=== PATIENT | female | born 2000 | race Caucasian/White ===

== ENCOUNTER 2022-11-05 18:39 | Emergency (ER) | payer BC ==
--- OUTSIDE RECORDS SUMMARY | 2022-11-05 19:02 | XMS REPORT | Continuity of Care Document ---
:2000 Author Organization [facility] t Address [address] [place] [address] Care Team Providers Name Role Phone AUDI ZAMUDIO Attending Clinician Unavailable SOPHIA BLOOM Attending Clinician Unavailable GC_NEOGA_Stephens_T Attending Clinician Unavailable NAMRATA AMBROSIO Attending Clinician Unavailable Aydin Kwok Attending Clinician Unavailable Watdeloris_H Attending Clinician Unavailable MINE MATTSON Attending Clinician Unavailable MD NANCY Attending Clinician Unavailable [facility] Attending Clinician Unavailable Namrata Ambrosio MD Attending Clinician [phone] Attending Clinician Unavailable Eliezer Rasheed Attending Clinician Unavailable AGUSTIN KIM Attending Clinician Unavailable SANDRA HU Attending Clinician Unavailable Agustin Kim MD Attending Clinician GC_NEOGA_Stephens_T Admitting Clinician Unavailable Physician, No Primary or Family Admitting Clinician Unavaila ble Watkins_H Admitting Clinician Unavailable Payers Payer Name Policy Type Policy Number Effective Date Expiration Date S [facility] [id number] 2019 00:00:00 [place] [id number] 2019 (PPO) 00:00:[address] [facility] [id number] [facility] 2 [id number] 2021 00:00:00 Problems This patient has no known problems. Allergies, Adverse Reactions, Alerts Allergy Allergy Status Severity Reaction(s) Onset Inactive Treating Comm ents Source Name Type Date Date Clinician Penicill DA Active U HIVES 2021-0 [facility] e [facility] propofol DA Active U UNKNOWN 2021-0 [facility] 7-16 [facility] 00:00: e 00 [facility] amoxicil DA Active SV HIVES 0 [facility] adri 7-16 [facility] 00:00: e 00 [facility] mushroom FA Active U UNKNOWN [facility] 7[facility]16 [facility] 00:00: e 00 [facility] Center Penicill DA Active U HIVES 2021-0 [facility] ins 3-11 [facility] 00:00: e 00 [facility] propofol DA Active U UNKNOWN 2021-0 [facility] 3-11 [facility] 00:00: e 00 [facility] mushroom FA Active U UNKNOWN 2021-0 [facility] 3-11 [facility] 00:00: e 00 [facility] Propofol Propensi Active Nausea and 2019- Patient Nat san ty to Vomiting 2-30 not sure Seybol d adverse 00:00: - reaction 00 Externa s l Propofol Propensi Active Nausea and 2019- Patient Nat san ty to Vomiting 2-30 not sure Seybol d adverse 00:00: reaction 00 s Mushroom Propensi Active Anaphylaxis 2015- K elsey Extract ty to 02-10 Seybold Complex adverse 00:00: reaction 00 s Mushroom Propensi Active Anaphylaxis 2015-0 K elsey Extract ty to 9 Seybold Complex adverse 00:00: - reaction 00 Externa s l Penicill Propensi Active Rash 2013- Mom Rocio ins ty to 5-06 states pt Seybold adverse 00:00: is reaction 00 allergic s to all "cillins" Penicill Propensi Active Rash 2013-0 Mom Rocio ins ty to 5-06 states pt Seybold adverse 00:00: is - reaction 00 allergic Supervisor Beater Room a s to all l "cillins" Social History Social Habit Start Date Stop Date Quantity Comments Source Exposure to Not sure Rocio Seybol d SARS-CoV-2 (event) Tobacco Comment 2021-08-12 2021-08-12 vapes daily Rocio dumontld - 00:00:00 00:00:00 External Sex Ass[birth year] At [birth year] Rocio jacobs - 00:00:00 00:00:00 External Smoking Status Start Date Stop Date Source Tobacco smoking consumption Althea ey Seybold unknown Never Smoker [facility] Smokes tobacco daily 2021-08-12 00:00:00 Rocio Nelson - External Medications Ordered Filled Start Stop Current Ordering Indication Dosage Frequency Signature Comments Components Source Medication Medication Date Date Medication? Clinician (SIG) Name Name Doxycycline Yes 100mg Take 100 K elsey Hyclate 100 9-28 mg by Seybold MG oral 00:00: mouth - Capsule 00 daily Externa l Azithromyci Yes TAKE 2 Althea ey n 250 MG 9-27 TABLETS BY Seybo ld oral Tablet 00:00: MOUTH - 00 TODAY, Externa THEN TAKE l 1 TABLET DAILY FOR 4 DAYS Clindamycin Yes TAKE 1 Althea ey HCl 300 MG 9-27 CAPSULE 4 Seyb old oral 00:00: TIMES A - Capsule 00 DAY UNTIL Externa FINISHED l TRIMETHOPRI Yes [id number] Take one Rocio M-SULFAMETH 2-02 tablet Seybol d OXAZOLE 00:00: twice (Bactrim 00 daily DS) 800-160 MG oral Tablet Ivermectin Yes [id number] Apply pea Rocio 1 % apply - sized Seybold externally 00:00: amount Cream 00 daily to facial areas TRIMETHOPRI Yes [id number] Take one Rocio M-SULFAMETH 2-02 tablet Seybol d OXAZOLE 00:00: twice (Bactrim 00 daily DS) 800-160 MG oral Tablet TRIMETHOPRI Yes [id number] Take one Rocio M-SULFAMETH 2-02 tablet Seybol d OXAZOLE 00:00: twice - (Bactrim 00 daily Externa DS) 800-160 l MG oral Tablet Ivermectin 2021- No [id number] Apply pea Rocio 1 % apply 2-02 03-21 sized Seybold externally 00:00: 00:00 amount Cream 00 :00 daily to facial areas Lisdexamfet Yes 40mg Take 40 mg Rocio amine - by mouth Seybold Dimesylate 00:00: every 40 MG oral 00 morning Capsule Lisdexamfet Yes 40mg Take 40 mg Rocio amine - by mouth Seybold Dimesylate 00:00: every - 40 MG oral 00 morning Supervisor [facility] Room a Capsule l Lisdexamfet 2021- No 40mg Take 40 mg Rocio amine -07-20 by mouth Seybold Dimesylate 00:00: 05:59 every 40 MG oral 00 :00 morning Capsule EPINEPHrine 2020-05 Yes .3mg Inject 0.3 Rocio 0.3 MG/0.3 0-12 mg into Seybol d ML IJ SOAJ 00:00: the muscle 00 as needed EPINEPHrine 2020-05 Yes .3mg Inject 0.3 Rocio 0.3 MG/0.3 0-12 mg into Seybol d ML IJ SOAJ 00:00: the muscle 00 as needed EPINEPHrine 2020-05 Yes .3mg Inject 0.3 Rocio 0.3 MG/0.3 0-12 mg into Seybol d ML IJ SOAJ 00:00: the muscle - 00 as needed Externa l azithromyci azithromyci No azithromyc [facility] n 250 mg n 250 mg in 250 mg Me dical tablet TAKE tablet TAKE tablet 2 TABLETS 2 TABLETS TAKE 2 BY MOUTH BY MOUTH TABLETS BY TODAY, THEN TODAY, THEN MOUTH TAKE 1 TAKE 1 TODAY, TABLET TABLET THEN TAKE DAILY FOR 4 DAILY FOR 4 1 TABLET DAYS DAYS DAILY FOR 4 DAYS clindamycin clindamycin No clindamyci [facility] HCl 300 mg HCl 300 mg n HCl 300 Medical capsule capsule mg capsule TAKE 1 TAKE 1 TAKE 1 CAPSULE 4 CAPSULE 4 CAPSULE 4 TIMES A DAY TIMES A DAY TIMES A UNTIL UNTIL DAY UNTIL FINISHED FINISHED FINISHED docusate docusate No docusate Malina via sodium 100 sodium 100 sodium 100 Medical mg capsule mg capsule mg capsule TAKE 1 TAKE 1 TAKE 1 CAPSULE BY CAPSULE BY CAPSULE BY MOUTH TWICE MOUTH TWICE MOUTH A DAY A DAY TWICE A DAY doxycycline doxycycline No doxycyclin [facility] hyclate 100 hyclate 100 e hyclate Medical mg capsule mg capsule 100 mg TAKE 1 TAKE 1 capsule CAPSULE BY CAPSULE BY TAKE 1 MOUTH EVERY MOUTH EVERY CAPSULE BY DAY DAY MOUTH EVERY DAY epinephrine epinephrine No epinephrin [facility] 0.3 mg/0.3 0.3 mg/0.3 e 0.3 Me dical mL mL mg/0.3 mL injection, injection, injection, auto-inject auto-inject auto-injec or INJECT or INJECT tor INJECT 0.3 MG INTO 0.3 MG INTO 0.3 MG THE MUSCLE THE MUSCLE INTO THE ONCE ONCE MUSCLE NEEDED, MAY NEEDED, MAY ONCE REPEAT 1 REPEAT 1 NEEDED, EXTRA DOSE EXTRA DOSE MAY REPEAT FOR UP TO 2 FOR UP TO 2 1 EXTRA DOSES. DOSES. DOSE FOR UP TO 2 DOSES. hydrocodone hydrocodone No hydrocodon [facility] 10 10 e 10 Medical mg-acetamin mg-acetamin mg-acetami ophen 325 ophen 325 nophen 325 mg tablet mg tablet mg tablet TAKE 1 TO 2 TAKE 1 TO 2 TAKE 1 TO TABLETS BY TABLETS BY 2 TABLETS MOUTH EVERY MOUTH EVERY BY MOUTH 6 HOURS 6 HOURS EVERY 6 NEEDED NEEDED HOURS NEEDED hydrocodone hydrocodone No hydrocodon [facility] 5 5 e 5 Medical mg-acetamin mg-acetamin mg-acetami ophen 325 ophen 325 nophen 325 mg tablet mg tablet mg tablet TAKE 1 TAKE 1 TAKE 1 TABLET TABLET TABLET EVERY 6 EVERY 6 EVERY 6 HOURS HOURS HOURS NEEDED FOR NEEDED FOR NEEDED FOR PAIN PAIN PAIN hydrocodone hydrocodone No hydrocodon [facility] 7.5 7.5 e 7.5 Medical mg-acetamin mg-acetamin mg-acetami ophen 325 ophen 325 nophen 325 mg tablet mg tablet mg tablet TAKE 1 TAKE 1 TAKE 1 TABLET BY TABLET BY TABLET BY MOUTH EVERY MOUTH EVERY MOUTH 6 HOURS 6 HOURS EVERY 6 NEEDED FOR NEEDED FOR HOURS PAIN PAIN NEEDED FOR PAIN hydrocortis hydrocortis No hydrocorti [facility] one acetate one acetate sone M edical 30 mg 30 mg acetate 30 rectal rectal mg rectal suppository suppository suppositor UNWRAP AND UNWRAP AND y UNWRAP INSERT 1 INSERT 1 AND INSERT SUPPOSITORY SUPPOSITORY 1 RECTALLY RECTALLY SUPPOSITOR TWICE A DAY TWICE A DAY Y RECTALLY DIRECTED DIRECTED TWICE A DAY DIRECTED ketorolac ketorolac No ketorolac [facility] 10 mg 10 mg 10 mg Medical tablet TAKE tablet TAKE tablet 1 TABLET BY 1 TABLET BY TAKE 1 MOUTH EVERY MOUTH EVERY TABLET BY 6 HOURS 6 HOURS MOUTH NEEDED FOR NEEDED FOR EVERY 6 PAIN PAIN HOURS NEEDED FOR PAIN valacyclovi valacyclovi No valacyclov [facility] r 1 gram r 1 gram ir 1 gram Me dical tablet TAKE tablet TAKE tablet 1 TABLET 1 TABLET TAKE 1 (1,000 MG (1,000 MG TABLET TOTAL) BY TOTAL) BY (1,000 MG MOUTH 2 MOUTH 2 TOTAL) BY (TWO) TIMES (TWO) TIMES MOUTH 2 A DAY FOR 8 A DAY FOR 8 (TWO) DAYS. DAYS. TIMES A DAY FOR 8 DAYS. Vyvanse 40 Vyvanse 40 No Vyvanse 40 [facility] mg capsule mg capsule mg capsule Medical TAKE 1 TAKE 1 TAKE 1 CAPSULE (40 CAPSULE (40 CAPSULE MG TOTAL) MG TOTAL) (40 MG BY MOUTH BY MOUTH TOTAL) BY EVERY EVERY MOUTH MORNING. MORNING. EVERY MORNING. Vital Signs Vital Name Observation Time Observation Value Comments Source BP Diastolic 2022-06-30 00:00:00 82 mm[Hg] Sherlyn Silva ical Height 2022-06-30 00:00:00 70 [in_i] Sherlyn Silva [facility] BMI (Body Mass Index) 2022-06-30 00:00:00 38.7 kg/m2 [facility] Medical BP Systolic 2022-06-30 00:00:00 120 mm[Hg] Sherlyn Silva [facility] Body Weight 2022-06-30 00:00:00 270 [lb_av] Sherlyn Silva ical Systolic blood 2022-02-24 14:15:00 112 mm[Hg] Rocio Santamariaybold - pressure External Diastolic blood 2022-02-24 14:15:00 74 mm[Hg] Santiago watkins Seybold - pressure External Heart rate 2022-02-24 14:15:00 82 /min Rocio hectorbold - External Respiratory rate 2022-02-24 14:15:00 15 /min Althea hector Seybold - External Body weight 2022-02-24 14:15:00 112.492 kg Rocio S krunalbold - External BMI 2022-02-24 14:15:00 36.62 kg/m2 Rocio hectorbold - External Systolic blood 2021-08-12 13:50:00 129 mm[Hg] Rocio Santamariaybold pressure Diastolic blood 2021-08-12 13:50:00 80 mm[Hg] Santiago watkins Seybold pressure Heart rate 2021-08-12 13:50:00 76 /min Rocio narayanan Respiratory rate 2021-08-12 13:50:00 16 /min Althea Nelson Body height 2021-08-12 13:50:00 175.3 cm Rocio narayanan Body weight 2021-08-12 13:50:00 102.422 kg Rocio narayanan BMI 2021-08-12 13:50:00 33.34 kg/m2 Rocio narayanan Procedures Procedure Date / Time Performed Performing Clinician [facility] Procedure on Wrist 2021-05-25 00:00:00 [facility] Breast Reduction 2017-05-25 00:00:00 [facility] Tonsilectomy/adenoids [facility] Plan of Care Planned Activity Planned Date Details Comments Source Diagnostic Test Pending 2022-06-30 00:00:00 OCRL1 mutations, [facility] blood or tissue [code = OCRL1 mutations, blood or tissue] Diagnostic Test Pending 2022-06-30 00:00:00 ca 125, serum [code [facility] = ca 125, serum] Encounters Start End Encounter Admission Attending Care Care Encounter Source Date/Time Date/Time Type Type Clinicians Facility Department ID 2021-09-11 Outpatient [facility] [id number] [place] 08:15:37 [id number] [facility] 2021-08-29 Outpatient ROBB [facility] [id number] [place] 15:58:21 AUDI [id number] [facility] 2022-07-18 2022-07-18 [place] [id number] AD[place] 01:41:00 05:43:00 LIPING 2022-06-30 2022-06-30 Outpatient [facility] [id number] [facility] 00:00:00 00:00:00 ephens_T [id number] Medic al 2022-06-30 2022-06-30 Outpatient [facility] [id number] [facility] 00:00:00 00:00:00 ephens_T [id number] Medic al 2022-06-30 2022-06-30 [facility] 00:00:00 00:00:00 [facility] [place]: [id number] GC_NEOGA_Ki Lengby radha Del Valle, [facility] Office* [address], [place] [address] , Ph. 2022-06-25 2022-06-25 Outpatient [facility] [id number] [facility] 00:00:00 00:00:00 ephens_T [id number] Medic al 2022-06-18 2022-06-18 Outpatient [facility] [id number] [facility] 00:00:00 00:00:00 ephens_T [id number] Medic al 2022-06-18 2022-06-18 Outpatient [facility] [id number] [facility] 00:00:00 00:00:00 ephens_T [id number] Medic al 2022-02-24 2022-02-24 Outpatient ROCIO AMBROSIO [id number] [facility] 08:30:00 08:30:00 NAMRATA renteria 2022-02-20 2022-02-20 Outpatient ROCIO AMBROSIO [id number] [facility] 00:00:00 00:00:00 NAMRATA renteria 2021-12-07 2021-12-07 Emergency SONDRA Petit [facility] [id number] [facility] 15:52:00 19:41:00 Aydin 18 [facility] 2021-12-07 2021-12-07 Emergency SONDRA Petit [facility] [id number] [facility] 15:52:00 19:41:00 Aydin [id number] [facility] 2021-11-14 2021-11-14 [place] [id number] - [place] 10:25:00 10:25:00 [id number] 2021-11-11 2021-11-11 Outpatient ROCIO AMBROSIO [id number] Rocio 00:00:00 00:00:00 NAMRATA renteria 2021-08-29 2021-08-29 Emergency E LAKEISHA MATTSON MHSE [id number] 12:07:00 14:44:00 MINE garcia [facility] 2021-08-26 2021-08-26 Outpatient MALKAVIOLETAIVELISSE ROCIO KEYES [id number] Rocio 00:00:00 00:00:00 MD MAYITO Seybol d 2021-08-25 2021-08-25 Outpatient ROCIO AMBROSIO [id number] [facility] 00:00:00 00:00:00 NAMRATA Seybol d 2021-08-21 2021-08-21 Outpatient ROCIO KEYES [id number] [facility] 10:30:00 10:30:00 Seybol d 2021-08-16 2021-08-16 Outpatient ROCIO AMBROSIO [id number] [facility] 00:00:00 00:00:00 NAMRATA Seybol d 2021-08-14 2021-08-14 Outpatient ROCIO KEYES [id number] Roc[facility] 10:15:00 10:15:00 Seybol d 2021-08-14 2021-08-14 Outpatient ROCIO AMBROSIO [id number] [facility] 00:00:00 00:00:00 NAMRATA Seybol d 2021-08-12 2021-08-12 Outpatient WCLAB ROCIO KEYES [id number] Rocio 09:45:00 09:45:00 Seybol d 2021-08-12 2021-08-12 Office JULIA Ambrosio'S [id number] Rocio 08:45:00 09:00:00 Visit Namrata MONTIEL [id number] arlene Wharton [id number] 2021-08-12 2021-08-12 Outpatient JAY96-MSW ROCIO KEYES [id number] Rocio 08:45:00 08:45:00 Seybol d 2021-08-02 2021-08-02 Inpatient SONDRA Ayers [id number] [facility] 00:11:00 02:50:00 Eliezer Kelley [facility] 2021-08-01 2021-08-01 Outpatient ROCIO KIM [id number] Rocio 08:30:00 08:30:00 AGUSTIN Seybo ld 2021-07-31 2021-07-31 Outpatient ROCIO KIM [id number] Rocio 11:30:00 11:30:00 AGUSTIN resendiz 2021-07-18 2021-07-18 Emergency E FRITZ, MHSE MHSE [id number] MH 18:11:00 20:01:00 SANDRA Fely garcia [facility] 2021-06-26 2021-06-26 Office Chikis [facility] [id number] Rocio 08:30:00 08:45:00 Visit Agustin AT THE [id number] [facility] [employer] AT [id number] [place] [id number] [place] [id number] Results Test Description Test Time Test Comments Results Result Comments Source BASIC METABOLIC PANEL 2021-12-07 18:23:00 Test Item Value Reference Range Interpretation Comme nts SODIUM (test code = NA) 138 mmol/L 136-145 N POTASSIUM (test code = K) 4.0 mmol/L 3.5-5.1 N CHLORIDE (test code = CL) 105.0 mmol/L 98-107 N CARBON DIOXIDE (test code = 26.0 mmol/L 21-32 N CO2) ANION GAP (test code = GAP) 11.0 10-20 N GLUCOSE (test code = GLU) 79 mg/dL 74-106 N BLOOD UREA NITROGEN (test 8 mg/dL 7-18 N code = BUN) GLOMERULAR FILTRATION RATE > 60 mL/min See_Comment E stimated GFR by using (test code = GFR) Modified M DRD formula.Chronic kidney disease is defined as either kidney d amageor GFR <60 mL/min/1.73 m2 for >3 months. [Automa nikko message] The system [employer] generated this result tra nsmitted reference range : >=60. The reference range was not used to interpret th is result as normal/abnormal . CREATININE (test code = 0.60 mg/dL 0.55-1.02 N No te change in reference CREAT) range due to ch giles in reagent. BUN/CREATININE RATIO (test 12.7 10-20 N code = BUN/CREA) CALCIUM (test code = CA) 9.6 mg/dL 8.5-10.1 N HCG SERUM [id number] 18:23:00 Test Item Value Reference Range Interpretation Comments HCG SERUM QUAL (test NEGATIVE NEGATIVE This HC GQL test is NOT code = HCGQL) applicable for MALE patients.Check with nurse about probable order error.If Tumor Marker Test needed, nu rse should order test "HCG TU"(Test #550.51290)---- - CBC W/O [id number] 18:01:00 Test Item Value Reference Range Interpretation Comments WHITE BLOOD CELL (test code = 7.3 K/mm3 4.5-12.5 N WBC) RED BLOOD CELL (test code = 5.56 mill/mm3 3.7-5.2 H RBC) HEMOGLOBIN (test code = HGB) 14.9 gram/dL 11.5-15.5 N HEMATOCRIT (test code = HCT) 47.3 % 36.0-46.0 H MEAN CELL VOLUME (test code = 85.1 fL 80-98 N MCV) MEAN CELL HGB (test code = MCH) 26.8 picogram 27.0-33.0 L MEAN CELL HGB CONCETRATION 31.5 gram/dL 33.0-36.0 L (test code = MCHC) RED CELL DISTRIBUTION WIDTH 14.0 % 11.6-16.2 N (test code = RDW) PLATELET COUNT (test code = 284 K/mm3 150-450 N PLT) MEAN PLATELET VOLUME (test code 9.9 fL 6.7-11.0 N = MPV) URINALYSIS [id number] 16:47:00 Test Item Value Reference Range Interpretation Comments UA COLOR (test code = Light-Yellow YELLOW COLU) UA APPEARANCE (test CLEAR CLEAR IS THE S AMPLE code = APPU) FROM ER OR L&D? IF THE ANSWER I S NO,PLEASE DOCUMENT TWO RN SIGNATURES HERE - by V.LAB.LT 12/07/21 1640 UA GLUCOSE DIPSTICK NEGATIVE mg/dL NEGATIVE (test code = DGLUU) UA BILIRUBIN DIPSTICK NEGATIVE mg/dL NEGATIVE (test code = BILU) UA KETONE DIPSTICK NEGATIVE mg/dL NEGATIVE (test code = KETU) UA SPECIFIC GRAVITY 1.024 1.001-1.035 (test code = SGU) UA BLOOD DIPSTICK 1.0 mg/dL (3+) NEGATIVE A (test code = LES) mg/dL UA PH DIPSTICK (test 7.5 5.0-8.0 code = SHELTON) UA PROTEIN DIPSTICK 10 (Trace) mg/dL NEGATIVE A (test code = PROU) UA UROBILINIOGEN Normal mg/dL NEGATIVE DIPSTICK (test code = URO) UA NITRITE DIPSTICK NEGATIVE NEGATIVE (test code = SESAR) UA LEUKOCYTE ESTERASE NEGATIVE Liam/uL NEGATIVE W REFLEX (test code = LEUUR) UA WBC (test code = 0-5 per HPF 0-5 WBCU) UA RBC (test code = 0-2 #/HPF 0-5 RBCU) UA EPITHELIAL CELLS FEW per HPF FEW (test code = EPIU) UA BACTERIA (test NONE SEEN #/HPF NONE code = BACU) UA MUCUS (test code = FEW #/LPF FEW MUCU) Urine Source? Clean CatchURINALYSIS [id number] 02:38:00 Test Item Value Reference Range Interpretation Comments UA COLOR (test code = YELLOW YELLOW COLU) UA APPEARANCE (test CLEAR CLEAR IS THE S AMPLE code = APPU) FROM ER OR L&D? Y IF THE ANSWER I S NO,PLEASE DOCUMENT TWO RN SIGNATURES HERE - by [id number] 08/02/21 0238 UA GLUCOSE DIPSTICK NEGATIVE mg/dL NEGATIVE (test code = DGLUU) UA BILIRUBIN DIPSTICK NEGATIVE mg/dL NEGATIVE (test code = BILU) UA KETONE DIPSTICK NEGATIVE mg/dL NEGATIVE (test code = KETU) UA SPECIFIC GRAVITY 1.023 1.001-1.035 (test code = SGU) UA BLOOD DIPSTICK 0.1 mg/dL (1+) NEGATIVE A (test code = LES) mg/dL UA PH DIPSTICK (test 6.5 5.0-8.0 code = SHELTON) UA PROTEIN DIPSTICK 10 (Trace) mg/dL NEGATIVE A (test code = PROU) UA UROBILINIOGEN Normal mg/dL NEGATIVE DIPSTICK (test code = URO) UA NITRITE DIPSTICK NEGATIVE NEGATIVE (test code = SESAR) UA LEUKOCYTE ESTERASE NEGATIVE Liam/uL NEGATIVE W REFLEX (test code = LEUUR) UA WBC (test code = 6-10 per HPF 0-5 A WBCU) UA RBC (test code = 3-5 #/HPF 0-5 RBCU) UA EPITHELIAL CELLS FEW per HPF FEW (test code = EPIU) UA BACTERIA (test FEW #/HPF NONE A code = BACU) UA MUCUS (test code = MODERATE #/LPF FEW A MUCU) Urine Source? Clean Catch- CT ABD PELVIS [id number] 02:03:00 [facility] ([facility])Name: AARON PATINO : 2000 Sex: F Name: AARON PATINO [facility] : 2000 Age/S: 20 / F [address] [facility] Unit #: [id number] Loc: Lani ALEXANDR [address] Phys: Esther Pérez [employer] Acct: [id number] Dis Date: Status: REG ER PHONE #: [phone] Exam Date: 08/02/2021 0150 FAX #: [phone] Reason: rectal pain EXAMS: CPTCODE: [id number] CT ABD PELVIS W/CONT [id number] Dictation location: H37. CT ABDOMEN AND PELVIS WITH IV CONTRAST HISTORY: rectal pain COMPARISON: None. TECHNIQUE: Postcontrast axial CT images of the abdomenand pelvis were obtained with coronal and/or sagittal reformatted views. Automated exposure control,iterative reconstruction technique, and/or adjustment of mA and/or kV according to patient's size was utilized for radiation dose reduction. FINDINGS: Visualized lung bases are clear. The heart size isnormal. No pericardial effusion. The gallbladder is partially distended without surrounding inflammatory changes. The liver, spleen, pancreas and adrenal glands are unremarkable. Both kidneys are similar in size, shape and enhancement and excretion of contrast material without evidence of hydronephrosis. Urinary bladder is contracted. An IUD is noted within the uterus. The ovaries are grossly unremarkable. No free air, free fluid or evidence of a bowel obstruction. Normal appendix. No definite bowel wall thickening. No definite abnormality seen along the rectum. The aorta is normal in caliber. No abdominal or pelvic adenopathy. The bones are unremarkable. IMPRESSION: Normal appendix. No inflammatory changes in the abdomen or pelvis. IUD. PAGE 1 Signed Report (CONTINUED) Name: AARON PATINO [facility] : 2000 Age/S: 20 / F [address] [facility] Unit #: [id number] Loc: Lani ALEXANDR [address]Vnec: Estehr Pérez NP Acct: [id number] Dis Date: Status: REG ER PHONE #: [phone] Exam Date: 08/02/2021 0150 FAX #: [phone] Reason: rectal pain EXAMS: CPT CODE: [id number] CT ABD PELVIS W /CONT [id number] (Continued) at 0203 Reported and signed by: Pool Presley M.D. CC: Esther Pérez NP Technologist:Es Murillo RT(R),CT CTDI: DLP: Trnscb Date/Time: 08/02/2021 (020) [email or web address] Orig Print D/T: S: 08/02/2021 (0206) PAGE 2 Signed ReportHEPATIC FUNCTION [id number] 01:33:00 Test Item Value Reference Range Interpretation Comments TOTAL PROTEIN (test 6.8 gram/dL 6.4-8.2 N code = PROT) ALBUMIN (test code = 3.8 g/dL 3.4-5.0 N ALB) GLOBULIN (test code = 3.0 gram/dL 2.7-4.2 N GLOB) ALBUMIN/GLOBULIN RATIO 1.3 0.75-1.50 N (test code = A/G) BILIRUBIN TOTAL (test 0.50 mg/dL 0.0-1.0 N code = BILT) BILIRUBIN DIRECT (test 0.20 mg/dL 0.0-0.20 N code = BILD) SGOT/AST (test code = 11 IUnit/L 15-37 L AST) SGPT/ALT (test code = 12 IUnit/L 12-78 N ALT) ALKALINE PHOSPHATASE 83 IUnit/L 45-117 N Note change in TOTAL (test code = reference range due ALKP) to change in reagent. [id number] 01:33:00 Test Item Value Reference Range Interpretation Comments LIPASE (test code = LIP) 24 U/L 12.00-57.00 N HCG SERUM [id number] 01:33:00 Test Item Value Reference Range Interpretation Comments HCG SERUM QUAL (test NEGATIVE NEGATIVE This HC GQL test is NOT code = HCGQL) applicable for MALE patients.Check with nurse about probable order error.If Tumor Marker Test needed, nu rse should order test "HCG TU"(Test #550.73794)---- - BASIC METABOLIC [id number] 01:33:00 Test Item Value Reference Range Interpretation Comments SODIUM (test code = 138 mmol/L 136-145 N NA) POTASSIUM (test code 3.4 mmol/L 3.5-5.1 L = K) CHLORIDE (test code 105.0 mmol/L 98-107 N = CL) CARBON DIOXIDE (test 30.0 mmol/L 21-32 N code = CO2) ANION GAP (test code 6.4 10-20 L = GAP) GLUCOSE (test code = 96 mg/dL 74-106 N GLU) BLOOD UREA NITROGEN 8 mg/dL 7-18 N (test code = BUN) GLOMERULAR > 60 mL/min See_Comment Estimated GFR b y FILTRATION RATE using Modifi ed MDRD (test code = GFR) formula.Ch ronic kidney disease is defined as eith er kidney damageor GFR <60 mL/min/1.73 m2 for >3 months. [Automated mess age] The system [employer] generated this result transmitted ref erence range: >=60. Th e reference range was not used to int erpret this result as normal/abnormal . CREATININE (test 0.70 mg/dL 0.55-1.02 N Note casiano ge in code = CREAT) reference rang e due to change in reagent. BUN/CREATININE RATIO 11.8 10-20 N (test code = BUN/CREA) CALCIUM (test code = 9.2 mg/dL 8.5-10.1 N CA) CBC W/O [id number] 01:15:00 Test Item Value Reference Range Interpretation Comments WHITE BLOOD CELL (test code = 8.0 K/mm3 4.5-12.5 N WBC) RED BLOOD CELL (test code = 5.06 mill/mm3 3.7-5.2 N RBC) HEMOGLOBIN (test code = HGB) 13.5 gram/dL 11.5-15.5 N HEMATOCRIT (test code = HCT) 42.7 % 36.0-46.0 N MEAN CELL VOLUME (test code = 84.4 fL 80-98 N MCV) MEAN CELL HGB (test code = MCH) 26.7 picogram 27.0-33.0 L MEAN CELL HGB CONCETRATION 31.6 gram/dL 33.0-36.0 L (test code = MCHC) RED CELL DISTRIBUTION WIDTH 13.4 % 11.6-16.2 N (test code = RDW) PLATELET COUNT (test code = 311 K/mm3 150-450 N PLT) MEAN PLATELET VOLUME (test code 9.9 fL 6.7-11.0 N = MPV) Notes Date/Time Note Provider Source 2021-12-07 16:07:00-00:00 [facility] ([facility]) EMERGENCY PROVIDER REPORT REPORT#:[id number] REPORT STATUS: Signed DATE:12/07/21 TIME: 1607 PATIENT: AARON PATINO UNIT #: [id number] ROOM/BED: AGE: 21 SEX: F PCP PHYS: No Primary or Family Ph ysician SERVICE AUTHOR: Faraz Hernandez APRN SUPERVISOR [employer] * ALL edits or amendments must be made on the el ectronic/computer document * See Addendum Slovacek,12/07/21 1607: HPI-Abd Pain F Under 40 Free Text HPI Notes Free Text HPI Notes 21-year-old female with no significant medical h istory presents to ED with abdominal pain and heavy vaginal bleeding starti ng 1 hour prior to arrival. Patient reports saturated to maxipads 75% without clots and able to feel her IUD , thinks it is dislodged ". Patient reports her but she brought him today was placed into antibiotic folli culitis years ago. No meds or treatment given prior to arrival. Denies fever, chest pain, shortness of breath, nausea, vomiting, hematemesis, hematochezia, dysuria, vaginal disc harge or bleeding. General Confirmed Patient Yes Initial Greet Date/Time 12/07/21 1552 PCP recently moved to area from [place], needing to establish Presentation Chief Complaint Abdominal pain, Vaginal bleeding Hx Obtained From Patient Sudden in Onset? No Onset Occurred Hours ago Symptom Duration Since onset Progression since Onset Unchanged Caused by No trauma by history Quality Cramping Radiation Does not radiate. Associated with Reports: Vaginal bleeding. Exacerbated by Nothing Relieved by Nothing Risk-Abd Pain F Under 40 )( Ectopic Risk factors reviewed Coronary Artery Disease Risk factors reviewed Thoracic Aortic Dissection Risk factors reviewed Review of Systems ROS Statements All systems rev neg except as marked. Focused Review of Systems Constitutional Denies: Chills, Fever, Lethargy. Respiratory Denies: Cough, non-productive, Cough, productive , Shortness of breath. Cardiovascular Denies: Chest pain, Syncope. GI Reports: Abdominal pain. Female Reports: Pelvic pain, Vaginal bleeding - abnl. Musculoskeletal Denies: Back pain, Extremity pain. Past Medical History - Adult Stated Complaint IUD FEELS OUT OF PLACE - VAG BL EED Allergies Coded Allergies: amoxicillin (Severe, HIVES 12/07/21) Penicillins (HIVES 12/07/21) mushroom (UNKNOWN 12/07/21) propofol (UNKNOWN 12/07/21) Home Medications Active Scripts KETOROLAC (TORADOL) 10 MG PO Q6H PRN PRN PAIN KETOROLAC (TORADOL) 10 MG PO Q6H PRN PRN PAIN # 20 TABS Prov: 08/02/21 Review of Nursing Notes Triage notes reviewed Pt reports no significant: Past medical history Past Surgical History: Reports: Tonsillectomy. Alcohol Use Alcohol use (social) Drug Use Denies recreational drugs Smoking status for patients 13 years old or olde r: Never Smoker Other Social History Uses e-cigarettes/vapes Physical Exam Vital Signs Vital Signs First Documented: Result Date Time Pulse Ox 100 12/07 1558 B/P 124/68 12/07 1558 B/P Mean 86 12/07 1558 O2 Delivery Room air 12/07 155 Temp 36.9 12/07 155 Pulse 80 12/07 1558 Resp 17 12/07 1558 Last Documented: Result Date Time Pulse Ox 99 12/08 1939 B/P 115/63 12/08 1939 B/P Mean 80 12/08 1939 O2 Delivery Room air 12/08 1939 Temp 36.7 12/08 1939 Pulse 87 12/08 1939 Resp 16 12/08 1939 Review of Vital Signs Reviewed Focused PE General/Const General/Const Awake, Alert, Well appearing MS Head Head Normocephalic Eyes Eyes PERRL Ears/Nose/Throat Ears/Nose/Throat Airway patent, Mucous membrane s moist, Pharynx NL Resp/Chest Respiratory/Chest Breath sounds NL, Breath soun ds = bilat, No respiratory distress, No rales, No rhonchi, No wheezing Cardiovascular Cardiovascular Heart rate NL, Regular rhythm, H eart sounds NL, Peripheral circulation NL Abdomen/GI Abdomen/GI Soft Tenderness/Guarding/Rebound Tender RUQ, Tender RLQ, Tender LLQ (worse). MS Back Back Inspection NL, Non-tender, No CVA tenderne ss Skin Skin Color NL, Warm, Dry, Turgor NL Genitourinary General Mechanical Engineering Teacher present (RN) Female Genitourinary External genitalia NL Text/Dict Notes IUD partially out of cervix Vaginal Bleeding/Discharge Bleeding mild. Rectum Rectum/Perineum Exam deferred Neurologic Neurologic Oriented X3, Speech NL, No motor def icits, No sensory deficits Interpretation Diagnostics Lab Results Interpretation Results Laboratory Tests 12/07/211749: [Embedded Image Not Available] Laboratory Tests: 12/07 1605 Chemistry Sodium (136 - 145 mmol/L) 138 Potassium (3.5 - 5.1 mmol/L) 4.0 Chloride (98 - 107 mmol/L) 105.0 Carbon Dioxide (21 - 32 mmol/L) 26.0 Anion Gap (10 - 20) 11.0 BUN (7 - 18 mg/dL) 8 Creatinine (0.55 - 1.02 mg/dL) 0.60 Glomerular Filtr Rate (>=60 mL/min) > 60 BUN/Creatinine Ratio (10 - 20) 12.7 Glucose (74 - 106 mg/dL) 79 Calcium (8.5 - 10.1 mg/dL) 9.6 Serum , Qual (NEGATIVE) NEGATIVE Hematology WBC (4.5 - 12.5 K/mm3) 7.3 RBC (3.7 - 5.2 mill/mm3) 5.56 H Hgb (11.5 - 15.5 gram/dL) 14.9 Hct (36.0 - 46.0 %) 47.3 H MCV (80 - 98 fL) 85.1 MCH (27.0 - 33.0 picogram) 26.8 L MCHC (33.0 - 36.0 gram/dL) 31.5 L RDW (11.6 - 16.2 %) 14.0 Plt Count (150 - 450 K/mm3) 284 MPV (6.7 - 11.0 fL) 9.9 Urines Urine Color (YELLOW) Light-Yellow Urine Appearance (CLEAR) CLEAR Urine pH (5.0 - 8.0) 7.5 Ur Specific [place] (1.001 - 1.035) 1.024 Urine Protein (NEGATIVE mg/dL) 10 (Trace) H Urine Glucose (UA) (NEGATIVE mg/dL) NEGATIVE Urine Ketones (NEGATIVE mg/dL) NEGATIVE Urine Blood (NEGATIVE mg/dL) 1.0 mg/dL (3+) H Urine Nitrite (NEGATIVE) NEGATIVE Urine Bilirubin (NEGATIVE mg/dL) NEGATIVE Urine Urobilinogen (NEGATIVE mg/dL) Normal Ur Leukocyte Esterase (NEGATIVE Liam/uL) NEGATIV E Urine RBC (0 - 5 #/HPF) 0-2 Urine WBC (0 - 5 per HPF) 0-5 Ur Epithelial Cells (FEW per HPF) FEW Urine Bacteria (NONE #/HPF) NONE SEEN Urine Mucus (FEW #/LPF) FEW Point of Care Testing Pulse Oximetry Pulse Ox % 100 On: Room air Interpretation Interpreted by me, Pulse oximetr y normal Re-Evaluation [facility] )( Re-Evaluation/Progress #1 Text/Dict Note IUD successfully removed by Dr. Lam without complications. Time of Re-Eval 1807 )( Re-Eval Status Improved Re-Evaluation/Progress #2 Text/Dict Note Patient called multiple times after IUD removed by OB without success. Eloped. Time of Eval 1856 Tissue Perfusion Reassessment Patient tissue perfusion reassessment completed. ED Course Medication(s) Ordered Medication(s) Ordered: Central Nervous System Agents Sig/Cristiano Start time Last Medication Dose Route Stop Time Status Admin Morphine Sulfate 4 MG X1ED STA 12/07 1605 DC 07 / IV / 1606 1726 Electrolytic, Caloric, And Laura Sig/Cristiano Start time Last Medication Dose Route Stop Time Status Admin Sodium Chloride 1,000 ML X1ED STA 12/07 1605 DC 07/16 IV 07/16 1704 1727 Gastrointestinal Drugs Sig/Cristiano Start time Last Medication Dose Route Stop Time Status Admin Ondansetron HCl 4 MG X1ED STA 12/07 1605 DC 07/ 16 IV 07/16 1606 1730 Consultation Consultation Referral/Consult Name Julia Lam MD Duct Installer Called HAND NAILER Requested Call Time 1735 Requested Call Date 12/07/21 Free Text Consult Notes Will come to ED for IUD removal Differential Diagnosis Differential Diagnosis Acute abdominal pain, Constipation, Diverticular disease, Dysmenorrhea, Ectopic preg ruptured, Ectopic pre gnancy, Hernia, Intrauterine , Ischemic bowel, M alignancy, Mesenteric adenitis, Mesenteric ischemia, Ovarian cyst, Ovarian torsion, Pancreatitis, Pel tono inflam disease, Urinary tract infection Patient Discharge Departure Vital Signs/Condition Vital Signs First Documented: Result Date Time Pulse Ox 100 12/07 1558 B/P 124/68 12/07 1558 B/P Mean 86 12/07 1558 O2 Delivery Room air 12/07 1558 Temp 36.9 12/07 1558 Pulse 80 12/07 1558 Resp 17 12/07 1558 Last Documented: Result Date Time Pulse Ox 99 12/08 1939 B/P 115/63 12/08 1939 B/P Mean 80 12/08 1939 O2 Delivery Room air 12/08 1939 Temp 36.7 12/08 1939 Pulse 87 12/08 1939 Resp 16 12/08 1939 All vital signs available at the time of this en try have been reviewed. Condition Stable Clinical Impression Clinical Impression Primary Impression: IUD complication Disposition Decision Other )( Time 185 )( Date 12/07/21 Against Medical Advice ELOPED Elopement Note Elopement Note This patient has left the emergency department o r waiting room with no communication to myself, nursing or administrati ve staff. There was no opportunity to discuss the patient's dec ision to leave, provide medical advice or discuss alternatives to leaving. The staff zavala s made efforts to locate the patient without success. Quality Measures BP F/U for HTN BP in normal range Preg Test for Women w/Abd Pain Any preg test ord ered Smoking Cessation Screened, non user Aydin Kwok 12/23/21 0522: Patient Discharge Departure Discharge/Care Plan Referrals Provider Referral: Shannon Francis CN Address: [address] [place] [address] [address] [address] Provider Referral: Joi House MD Address: [address] [place] [address] Provider Referral: Renee Garcia MD Address: [address] [place] [address] Supervising Physician Note MidLv Saw Pt Alone I have reviewed the PA/SUPERVISOR BOTTLE MACHINES's note and plan of car e. I was available for consultation as needed at al l times during the patient's visit in the emergency department. I agree with the clinical impression , plan and disposition. Electronically Signed by Faraz Hernandez o n 12/07/21 at 1859 Electronically Signed by Aydin Kwok MD on 0 12/23/21 at 0525 Addendum 1: 12/07/211924 by Faraz Hernandez APRN [employer] Patient Addendum Addendum Patient returned to facility after called. Repor ts got lost return to ED from the OB area. Reassessed patient, resting comfortably, stable vital signs, pain controlled, discussed results, discharge plan, f ollow-up plan and return precautions- pt understands and agrees with disc harge plan. Provider Time Updates Greet Date/Time Date/Time Seen by Provider 12/07/21 1552 Disposition Discharge )( Discharged to Home Yes )( Time 1924 )( Date 12/07/21 Reason for Edit Reason for Edit: Patient returned to facility Electronically Signed by Faraz Hernandez o n 12/07/21 at 1925 RPT #:[id number] END OF REPORT 2021-08-02 00:19:00-00:00 [facility] ([facility]) EMERGENCY PROVIDER REPORT REPORT#:[id number] REPORT STATUS: Signed DATE:08/02/21 TIME: 18 PATIENT: AARON PATINO UNIT #: [id number] ROOM/BED: AGE: 20 SEX: F PCP PHYS: No Primary or Family Ph ysician SERVICE AUTHOR: Esther Pérez SU[employer] * ALL edits or amendments must be made on the [place]/computer document * Esther Pérez 08/02/21 001: HPI-Abd Pain F Under 40 Free Text HPI Notes Free Text HPI Notes 20-year-old female presents to the emergency mariah with a 2-week history of rectal pain and bleeding. Denies fever, nausea, or vomiting. Patient reports lower abdominal pain today. Patient is in no acute distress at time of my exam. General Confirmed Patient Yes Patient Type New patient Initial Greet Date/Time 08/02/2114 Presentation Chief Complaint Rectal bleeding Hx Obtained From Patient Onset Occurred Weeks ago Risk-Abd Pain F Under 40 )( Ectopic Risk factors reviewed Review of Systems ROS Statements All systems rev neg except as marked. Focused Review of Systems GI Reports: Abdominal pain, Bloody/tarry stool, Rec luciana pain. Denies: Melena, Nausea, Vomiting. Female Denies: Dysuria, Flank pain, , Vaginal b leeding - abnl, Vaginal discharge. Free Text ROS Notes Free Text ROS Notes Constitutional: Denies fever , chills, lethargy, malaise, or generalized weakness Eyes: Denies redness, pain, discharge, vision ch giles ENT: Denies earache, nasal congestion, or sore t hroat Respiratory: Denies cough, NORMAN, hemoptysis, SOB, or wheezing Cardiovascular: Denies chest pain, edema, palpit ations, or syncope Musculoskeletal: Denies back pain, extremity nini n, joint pain, or neck pain Skin: Denies rash, laceration, abrasion, or swel ling Neurological: Denies bladder dysfunction, bowel dysfunction, change in LOC, focal weakness, dizziness, headache, numbness, t ingling Past Medical History - Adult Stated Complaint RECTAL PAIN BLEEDING, WITH HEMO RRHOIDS Allergies Coded Allergies: Penicillins (HIVES 08/02/21) mushroom (UNKNOWN 08/02/21) propofol (UNKNOWN 08/02/21) Review of Nursing Notes Triage notes reviewed Smoking status: Smoking status for patients 13 years old or old er: Current some day smoker Physical Exam Vital Signs Vital Signs First Documented: Result Date Time Pulse Ox 99 08/02 0000 B/P 110/69 08/02 0000 B/P Mean 82 08/02 0000 O2 Delivery Room air 08/02 Temp 36.8 08/02 0000 Pulse 64 08/02 0000 Resp 17 08/02 0000 Last Documented: Result Date Time Pulse Ox 99 08/02 0000 B/P 110/69 08/02 0000 B/P Mean 82 08/02 0000 O2 Delivery Room air 08/02 Temp 36.8 08/02 0000 Pulse 64 08/02 0000 Resp 17 08/02 0000 Review of Vital Signs Reviewed Focused PE General/Const General/Const Awake, Alert, No acute di stress, Well appearing, Well developed , Well hydrated, Well nourished, Cooperative, No t toxic appearing Resp/Chest Respiratory/Chest Atraumatic, Breath sounds NL, Breath sounds = bilat, No respiratory distress, No rales, No rhonchi, No w heezing Cardiovascular Cardiovascular Heart rate NL, Cap refill not de layed, Peripheral circulation NL Abdomen/GI Abdomen/GI Atraumatic, Soft, Non-tender, No gua rding, BS normoactive, No distention, No palpable mass MS Back Back Non-tender, No CVA tenderness Skin Skin Atraumatic, Color NL, No rash, War m, Dry, Intact, Turgor NL, No swelling Rectum Rectum/Perineum No discharge, No fecal impaction, No fissures, No hemorrhoids , No lesions, No mass Text/Dict Notes manager academic present as seafood service team member. No external or e xternal hemorrhoids noted. No fissures, no obvious abscess. Patient with signi ficant pain on digital rectal exam. Neurologic Neurologic Oriented X3, Speech NL, Gait NL Interpretation Diagnostics Lab Results Interpretation Results Laboratory Tests 08/02/2142: [Embedded Image Not Available] Laboratory Tests: 08/02 0035 Chemistry Sodium (136 - 145 mmol/L) 138 Potassium (3.5 - 5.1 mmol/L) 3.4 L Chloride (98 - 107 mmol/L) 105.0 Carbon Dioxide (21 - 32 mmol/L) 30.0 Anion Gap (10 - 20) 6.4 L BUN (7 - 18 mg/dL) 8 Creatinine (0.55 - 1.02 mg/dL) 0.70 Glomerular Filtr Rate (>=60 mL/min) > 60 BUN/Creatinine Ratio (10 - 20) 11.8 Glucose (74 - 106 mg/dL) 96 Calcium (8.5 - 10.1 mg/dL) 9.2 Total Bilirubin (0.0 - 1.0 mg/dL) 0.50 Direct Bilirubin (0.0 - 0.20 mg/dL) 0.20 AST (15 - 37 IUnit/L) 11 L ALT (12 - 78 IUnit/L) 12 Total Alk Phosphatase (45 - 117 IUnit/L) 83 Total Protein (6.4 - 8.2 gram/dL) 6.8 Albumin (3.4 - 5.0 g/dL) 3.8 Globulin (2.7 - 4.2 gram/dL) 3.0 Albumin/Globulin Ratio (0.75 - 1.50) 1.3 Lipase (12.00 - 57.00 U/L) 24 Serum , Qual (NEGATIVE) NEGATIVE Hematology WBC (4.5 - 12.5 K/mm3) 8.0 RBC (3.7 - 5.2 mill/mm3) 5.06 Hgb (11.5 - 15.5 gram/dL) 13.5 Hct (36.0 - 46.0 %) 42.7 MCV (80 - 98 fL) 84.4 MCH (27.0 - 33.0 picogram) 26.7 L MCHC (33.0 - 36.0 gram/dL) 31.6 L RDW (11.6 - 16.2 %) 13.4 Plt Count (150 - 450 K/mm3) 311 MPV (6.7 - 11.0 fL) 9.9 Urines Urine Color (YELLOW) YELLOW Urine Appearance (CLEAR) CLEAR Urine pH (5.0 - 8.0) 6.5 Ur Specific [place] (1.001 - 1.035) 1.023 Urine Protein (NEGATIVE mg/dL) 10 (Trace) H Urine Glucose (UA) (NEGATIVE mg/dL) NEGATIVE Urine Ketones (NEGATIVE mg/dL) NEGATIVE Urine Blood (NEGATIVE mg/dL) 0.1 mg/dL (1+) H Urine Nitrite (NEGATIVE) NEGATIVE Urine Bilirubin (NEGATIVE mg/dL) NEGATIVE Urine Urobilinogen (NEGATIVE mg/dL) Normal Ur Leukocyte Esterase (NEGATIVE Liam/uL) NEGATIV E Urine RBC (0 - 5 #/HPF) 3-5 Urine WBC (0 - 5 per HPF) 6-10 H Ur Epithelial Cells (FEW per HPF) FEW Urine Bacteria (NONE #/HPF) FEW H Urine Mucus (FEW #/LPF) MODERATE H Recent Impressions: CAT SCAN - CT ABD PELVIS W/CONT 08/02 0140 Report Impression - Status: SIGNED Entered: 08/02/2021 0206 IMPRESSION: Normal appendix. No inflammatory changes in the abdomen or pelvis. IUD. Impression By: [email or web address] Krish Pineda Point of Care Testing Pulse Oximetry Pulse Ox % 99 On: Room air Interpretation Interpreted by me, Pulse oximetr y normal Re-Evaluation [facility]DM )( Re-Evaluation/Progress #1 Text/Dict Note Patient educated on diagnosi s, lab results, imaging results, signs and symptoms when to return to the ER, need for outpatient GI follow-up. Strict return precautions given. Stable for DC. )( Re-Eval Status Improved ED Course Medication(s) Ordered Medication(s) Ordered: Central Nervous System Agents Sig/Cristiano Start time Last Medication Dose Route Stop Time Status Admin Morphine Sulfate 4 MG X1ED STA 08/02 0019 DC 0 08/02 IV 08/02 0020 0036 Diagnostic Agents Sig/Cristiano Start time Last Medication Dose Route Stop Time Status Admin Iopamidol 0 .STK-MED ONE 08/02 0148 DC 08/02 .ROUTE 0155 Patient Discharge Departure Vital Signs/Condition Vital Signs First Documented: Result Date Time Pulse Ox 99 03/ 0000 B/P 110/69 03/ 0000 B/P Mean 82 03/ 0000 O2 Delivery Room air 03 0000 Temp 36.8 03 0000 Pulse 64 03/ 0000 Resp 17 08/02 0000 Last Documented: Result Date Time Pulse Ox 99 03/ 0000 B/P 110/69 03 0000 B/P Mean 82 / 0000 O2 Delivery Room air 08/02 0000 Temp 36.8 03 0000 Pulse 64 03 0000 Resp 17 08/02 0000 All vital signs available at the time of this en try have been reviewed. Condition Stable Clinical Impression Clinical Impression Primary Impression: Rectal pain Secondary Impressions: Rectal bleeding Disposition Decision Discharge )( Discharged to Home Yes )( Time 0246 )( Date 08/02/21 Discharge/Care Plan Counseled Regarding Diagnosi s, Lab results, Imaging studies, Prescriptions, Need for follow-up, When to return to ED (Auto) Prescriptions Current Visit Scripts KETOROLAC (TORADOL) 10 MG PO Q6H PRN PRN PAIN KETOROLAC (TORADOL) 10 MG PO Q6H PRN PRN PAIN # 20 TABS Prescriptions Reviewed Risks, Benefits, Alternat salvador treatment Patient Instructions Abdominal Pain, ED Lower GI Bleeding (Stable) Discharge Note I have spoken with the patie nt and/or caregivers. I have explained the patient's condition, diagnoses and ramez atment plan based on the information available to me at this time. I have answered the patient's and/ or caregiver's questions and addressed any concerns. The patient and/or careg jamir have as good an understanding of the patient 's diagnosis, condition and treatment plan as can be expected at this point. The vital signs have bee n stable. The patient's condition is stable and appr opriate for discharge from the emergency department. The patient will pursue further outpatient evalu ation with the primary care physician or other designated or consulting phys ician as outlined in the discharge instructions. The patient and/or caregivers are agreeable to this plan of care and follow-up instructions have been exp lained in detail. The patient and/or caregivers have received these instructio ns in written format and have expressed an understanding of the discharge inst ructions. The patient and/or caregivers are aware that any significant change in condition or worsening of symptoms should prompt an immediate return to [facility] or the closest emergency department or a call to 911. Quality Measures BP F/U for HTN BP in normal range Preg Test for Women w/Abd Pa in Female age 14-50, Complaint of abdominal pn, Any preg test ordered Smoking Cessation Screened, tobacco user, Tobacc o cess intervention WiliEliezer M 08/02/21 0427: Patient Discharge Departure Discharge/Care Plan Referrals Provider Referral: Kar Thomas MD Follow-Up: 1-2 Days Address: [address] [place] [address] Supervising Physician Note MidLv Saw Pt Alone I have reviewed the PA/SUPERVISOR BOTTLE MACHINES's note and plan of car e. I was available for consultation as needed at al l times during the patient's visit in the emergency department. at [phone] at [phone] RPT #:[id number] END OF REPORT
[2022-11-05] MEDS ORDERED: TRAMADOL HCL 50 MG TAB ONE (19:24)
[2022-11-05 19:58] LABS: Urine Bacteria <20 /HPF (<20); Urine Bilirubin NEGATIVE (Negative); Urine Blood Negative (Negative); Urine Clarity Extremely Turbid (Clear); Urine Color Yellow (Yellow); Urine Glucose NEGATIVE (Negative); Urine Mucus 3+ /HPF (None Seen); Urine Protein 1+ (Negative); Urine Urobilinogen 1+ (Normal); Urine pH 6.5 (5.0-7.0)
--- NOTE | 2022-11-05 21:03 | RAD REPORT ---
EXAM DESCRIPTION: CT - Abdomen Pelvis Wo Contrast - 11/05/2022 8:37 pm CLINICAL HISTORY: HEMATURIA COMPARISON: No comparisons TECHNIQUE: Thin cut axial CT imaging of the abdomen and pelvis was performed without IV contrast. Mu ltiplanar reformats were generated and reviewed. All CT scans are performed using dose optimization technique as appropriate and may include automated exposure control or mA/KV adjustment according to patient size. FINDINGS: No suspicious findings in the lung bases. The liver, spleen, and pancreas show no suspicious findings. Gallbladder is suboptimally distended, l imiting evaluation. No intra or extrahepatic biliary ductal dilation. Symmetric renal contour, without suspicious parenchymal findings within limits of noncontrast techniq ue. No evidence of radiopaque calculi or hydroureteronephrosis. No dilated bowel loops or bowel wall thickening. No free air, free fluid or inflammatory stranding. N o hernia, mass or bulky lymphadenopathy. The urinary bladder is suboptimally distended, limiting eval uation. No suspicious bony findings. IMPRESSION: No acute intra-abdominal process. No hydroureteronephrosis or radiopaque calculi.
--- NOTE | 2022-11-05 21:16 | EDPHYS ---
Physician Documentation [facility] Name: Lindsay Herman Age: 22 yrs Sex: Female : 2000 Arrival Date: 11/05/2022 Time: 18:39 Bed 4 Private MD: ED Physician Chad Nguyen HPI: 11/05 19:07 This 22 yrs old Female presents to ER via Ambulatory with complaints of Cystitis, sp3 urinary frequency and pain over her bladder. 19:07 22-year-old female with a history of frequent UTIs and interstitial cystitis now sp3 presents to the ED with chief complaint urinary frequency pain over her bladder consistent with her prior episodes. She denies fever, upper abdominal pain, back pain, flank pain, [employer] symptoms including vaginal bleeding or discharge, , chest pain, shortness of breath, nausea, vomiting, diarrhea, or any other signs or symptoms on ROS at this time.. Historical: - Allergies: 18:48 PENICILLINS; mb9 - Home Meds: 18:48 None [Active]; mb9 - PMHx: 18:48 interstitial cystitis; mb9 - PSHx: 18:48 Metal implants- L wrist; Breast Reduction; mb9 - Immunization history:: Adult Immunizations up to date. - Social history:: Smoking status: Reported history of juuling and/or vaping. ROS: 19:10 Constitutional: Negative for fever, chills, and weight loss, Eyes: Negative for injury, sp3 pain, redness, and discharge, ENT: Negative for injury, pain, and discharge, Neck: Negative for injury, pain, and swelling, Cardiovascular: Negative for chest pain, palpitations, and edema, Respiratory: Negative for shortness of breath, cough, wheezing, and pleuritic chest pain, Back: Negative for injury and pain, MS/Extremity: Negative for injury and deformity, Skin: Negative for injury, rash, and discoloration, Neuro: Negative for headache, weakness, numbness, tingling, and seizure, Psych: Negative for depression, anxiety, suicide ideation, homicidal ideation, and hallucinations, Allergy/Immunology: Negative for hives, rash, and allergies, Endocrine: Negative for neck swelling, polydipsia, polyuria, polyphagia, and marked weight changes, Hematologic/Lymphatic: Negative for swollen nodes, abnormal bleeding, and unusual bruising. 19:10 All other systems are negative. Exam: 19:11 Constitutional: This is a well developed, well nourished patient who is awake, alert, sp3 and in no acute distress. Head/Face: Normocephalic, atraumatic. Eyes: Pupils equal round and reactive to light, extra-ocular motions intact. Lids and lashes normal. Conjunctiva and sclera are non-icteric and not injected. Cornea within normal limits. Periorbital areas with no swelling, redness, or edema. Neck: Trachea midline, no thyromegaly or masses palpated, and no cervical lymphadenopathy. Supple, full range of motion without nuchal rigidity, or vertebral point tenderness. No Meningismus. Chest/axilla: Normal chest wall appearance and motion. Nontender with no deformity. No lesions are appreciated. Cardiovascular: Regular rate and rhythm with a normal S1 and S2. No gallops, murmurs, or rubs. Normal PMI, no JVD. No pulse deficits. Respiratory: Lungs have equal breath sounds bilaterally, clear to auscultation and percussion. No rales, rhonchi or wheezes noted. No increased work of breathing, no retractions or nasal flaring. Back: No spinal tenderness. No costovertebral tenderness. Full range of motion. Skin: Warm, dry with normal turgor. Normal color with no rashes, no lesions, and no evidence of cellulitis. MS/ Extremity: Pulses equal, no cyanosis. Neurovascular intact. Full, normal range of motion. Neuro: Awake and alert, GCS 15, oriented to person, place, time, and situation. Cranial nerves II-XII grossly intact. Motor strength 5/5 in all extremities. Sensory grossly intact. Cerebellar exam normal. Normal gait. Psych: Awake, alert, with orientation to person, place and time. Behavior, mood, and affect are within normal limits. 19:11 Abdomen/GI: Mild discomfort over her bladder without any peritoneal signs, rebound or guarding.. Vital Signs: 18:45 BP 126 / 68; Pulse 90; Resp 20; Temp 98.9; Pulse Ox 100% on R/A; Weight 117.93 kg; mb9 Height 5 ft. 10 in. ; Pain 10/10; 20:14 BP 110 / 52; Pulse 85; Resp 16 S; Pulse Ox 98% on R/A; Pain 3/10; aa9 21:32 BP 113 / 51; Pulse 85; Resp 16; Temp 98.2; Pulse Ox 99% on R/A; aa9 18:45 Body Mass Index 37.31 (117.93 kg, 177.8 cm) mb9 18:45 Pain Scale: Adult mb9 20:14 Pain Scale: Adult aa9 MDM: 19:04 Patient medically screened. sp3 19:11 Data reviewed: vital signs, nurses notes, lab test result(s). ED course: Likely UTI sp3 spectrum. We will obtain urine for urinalysis and hCG. Likely discharge home on antibiotic. We will administer tramadol p.o. in the ER since that is worked for her in the past. I am not highly suspicious for kidney stone, pyelonephritis, intra intestinal pathology, retroperitoneal pathology, vascular pathology including aorta, sepsis, shock or any other critical findings at this time.. 11/05 19:04 Order name: UAM; Complete Time: 20:00 sp3 11/05 19:04 Order name: Test, Urine; Complete Time: 19:58 sp3 11/05 20:02 Order name: CT Abd/Pelvis - Without Contrast; Complete Time: 21:07 rt Administered Medications: 19:18 Drug: traMADol PO 50 mg Route: PO; vc1 Disposition Summary: 11/05/22 21:15 Discharge Ordered Location: Home rt Problem: an acute exacerbation rt Symptoms: have improved rt Condition: Stable rt Diagnosis - Interstitial cystitis rt Followup: rt - With: Private Physician - When: 2 - 3 days - Reason: Discharge Instructions: - Discharge Summary Sheet rt - Interstitial Cystitis rt Forms: - Medication Reconciliation Form rt - Thank You Letter rt - Antibiotic Education rt - Prescription Opioid Use rt Prescriptions: - Tramadol 50 mg Oral Tablet - take 1 tablet by ORAL route every 8 hours as needed; 18 tablet; Refills: 0, rt Product Selection Permitted Signatures: Dispatcher [employer] EDGretchen Cisneros MD MD sp3 Celine Horne RN RN vc1 Patience Teixeira RN RN mb9 Chad Nguyen MD MD rt
--- NOTE | 2022-11-05 21:16 | ER ---
Nurse's Notes [facility] Name: Lindsay Herman Age: 22 yrs Sex: Female : 2000 Arrival Date: 11/05/2022 Time: 18:39 Bed 4 Private MD: Diagnosis: Interstitial cystitis Presentation: 11/05 18:45 Chief complaint: Patient states: "I think I'm having a flare up of interstitial mb9 cystitis. 1 hr ago, it felt like someone kicked me in my right lower abdominal. I was screaming in pain and now feels like something is twisting my stomach. I called my OB in [place] and they told me to come to the ER. I'm super nauseous". Coronavirus screen: Vaccine status: Patient reports being unvaccinated. Ebola Screen: No symptoms or risks identified at this time. Initial Sepsis Screen: Does the patient meet any 2 criteria? No. Patient's initial sepsis screen is negative. Does the patient have a suspected source of infection? No. Patient's initial sepsis screen is negative. Risk Assessment: Do you want to hurt yourself or someone else? Patient reports no desire to harm self or others. Onset of symptoms was November 05, 2022. 18:45 Method Of Arrival: Ambulatory 9 18:45 Acuity: JADE 3 mb9 Triage Assessment: 18:49 General: Appears uncomfortable, Behavior is cooperative. Pain: Complains of pain in mb9 abdomen. Neuro: Alvarado Agitation-Sedation Scale (RASS): 0 - Alert and Calm Level of Consciousness is awake, alert, obeys commands, Oriented to person, place, time, situation, Appropriate for age. GI: Abdomen is round non-distended, Bowel sounds present X 4 quads. Abd is soft Abdomen is tender to palpation in right lower quadrant. Derm: Skin is pink, warm \\T\\ dry. Musculoskeletal: Range of motion: intact in all extremities. Historical: - Allergies: 18:48 PENICILLINS; mb9 - Home Meds: 18:48 None [Active]; mb9 - PMHx: 18:48 interstitial cystitis; mb9 - PSHx: 18:48 Metal implants- L wrist; Breast Reduction; mb9 - Immunization history:: Adult Immunizations up to date. - Social history:: Smoking status: Reported history of juuling and/or vaping. Screenin:50 [facility] ED Fall Risk Assessment (Adult) History of falling in the last 3 months, bp including since admission No falls in past 3 months (0 pts). Abuse screen: Denies threats or abuse. Denies injuries from another. Nutritional screening: No deficits noted. Tuberculosis screening: No symptoms or risk factors identified. Assessment: 18:50 General: SEE TRIAGE NOTE. bp 20:15 Reassessment: Patient appears in no apparent distress at this time. Patient and/or aa9 family updated on plan of care and expected duration. Pain level reassessed. Patient is alert, oriented x 3, equal unlabored respirations, skin warm/dry/pink. Patient states feeling better. 21:32 Reassessment: Patient appears in no apparent distress at this time. Patient and/or aa9 family updated on plan of care and expected duration. Pain level reassessed. Patient is alert, oriented x 3, equal unlabored respirations, skin warm/dry/pink. Patient states feeling better. Vital Signs: 18:45 BP 126 / 68; Pulse 90; Resp 20; Temp 98.9; Pulse Ox 100% on R/A; Weight 117.93 kg; mb9 Height 5 ft. 10 in. ; Pain 10/10; 20:14 BP 110 / 52; Pulse 85; Resp 16 S; Pulse Ox 98% on R/A; Pain 3/10; aa9 21:32 BP 113 / 51; Pulse 85; Resp 16; Temp 98.2; Pulse Ox 99% on R/A; aa9 18:45 Body Mass Index 37.31 (117.93 kg, 177.8 cm) mb9 18:45 Pain Scale: Adult mb9 20:14 Pain Scale: Adult aa9 ED Course: 18:41 Patient arrived in ED. im 18:48 Triage completed. mb9 18:48 Arm band placed on. mb9 18:50 Patient has correct armband on for positive identification. Bed in low position. Call bp light in reach. Side rails up X2. 18:50 No provider procedures requiring assistance completed. bp 18:55 Gretchen Rosenthal MD is Attending Physician. sp3 19:12 Celine Horne, RN is Primary Nurse. vc1 19:13 Test, Urine Sent. mb9 19:13 UAM Sent. mb9 20:01 Attending Physician role handed off by Gretchen Rosenthal MD rt 20:01 Chad Nguyen MD is Attending Physician. rt 20:38 CT Abd/Pelvis - Without Contrast In Process Unspecified. EDMS 21:33 Patient did not have IV access during this emergency room visit. aa9 Administered Medications: 19:18 Drug: traMADol PO 50 mg Route: PO; vc1 Medication: 18:50 VIS not applicable for this client. bp Outcome: 21:15 Discharge ordered by MD. rt 21:32 Discharged to home ambulatory. aa9 21:32 Condition: stable 21:32 Discharge instructions given to patient, Instructed on discharge instructions, follow up and referral plans. medication usage, Demonstrated understanding of instructions, follow-up care, medications, Prescriptions given X 1. 21:34 Patient left the ED. aa9 Signatures: Dispatcher [employer] EDMS Philip Galvan, RN RN bp Gretchen Rosenthal MD MD sp3 Celine Horne RN RN vc1 Vicki Kerr RN RN aa9 Patience Teixeira RN RN mb9 Chad Nguyen MD MD rt Rita Gonzalez Corrections: (The following items were deleted from the chart) 21:34 21:33 Verified aa9 aa9
[2022-11-05 21:44] VITALS: BP 113/51; TEMP 98.2; O2SAT 99
== END 2022-11-05 21:34 | disposition home or self-care (01) ==
LOC: ER 18:39
DX: N30.10 Interstitial cystitis (chronic) without hematuria (principal); Z88.0 Allergy status to penicillin
CPT/HCPCS: 74176; 81001; 81025; 99284